=== PATIENT | female | born 1990 | race Caucasian/White ===

== ENCOUNTER 2019-10-21 17:04 | Emergency (ER) | payer OTHER ==
[~2019-10-21] VITALS: Ht 172.7 cm; Wt 86.2 kg
[2019-10-21 17:08] VITALS: BP 138/80
--- NOTE | 2019-10-21 17:10 | NUR ---
biba bls c/o numbness and tingling sensation hand and finger while driving in the freeway[place]pt aox4 , afibrile, ambulatory with steady gait. pmhx anxiety
--- NOTE | 2019-10-21 17:17 | NUR ---
shan linda at bedside evaluating pt.
--- NOTE | 2019-10-21 17:31 | NUR ---
michael palafox at bedside doin ekg
--- NOTE | 2019-10-21 17:45 | NUR ---
NINO BOLAÑOS AT BEDSIDE REEVALUATING PT.
[2019-10-21 18:07] VITALS: BP 131/73
--- NOTE | 2019-10-21 18:08 | NUR ---
Patient discharged with v/s stable. Written and verbal after care instructions given and explained. Patient alert, oriented and verbalized understanding of instructions. Ambulatory with steady gait. All questions addressed prior to discharge. ID band removed. Patient advised to follow up with PMD. Rx of vistaril given. Patient educated on indication of medication including possible reaction and side effects. Opportunity to ask questions provided and answered.
== END 2019-10-21 18:07 | disposition home or self-care (01) ==
LOC: MED 17:04
DX: F41.9 Anxiety disorder, unspecified (principal); R03.0 Elevated blood-pressure reading, without diagnosis of hypertension
CPT/HCPCS: 81002; 81025; 93005; 99283